=== PATIENT | female | born 1985 | race Caucasian/White ===

== ENCOUNTER 2016-09-03 19:32 | Outpatient (CLI) | payer MEDICAID ==
[~2016-09-03 19:32] MED LIST: ACET325T14 PO; ACID1TAB3 PO; CLIN300C93 PO; CLOB15CR19 TP; DAPS100T PO; OXYC-302 PO; PRED10TA PO
[2016-09-03 20:21] LABS: DAU SCREEN DISCLAIMER
== END 2016-09-03 21:35 | disposition home or self-care (01) ==
LOC: LDOP 19:32
PROVIDERS: ATTEND Obstetrics & Gynecology
DX: O26.892 Other specified pregnancy related conditions, second trimester (principal); R10.30 Lower abdominal pain, unspecified; O10.912 Unspecified pre-existing hypertension complicating pregnancy, second trimester; Z3A.20 20 weeks gestation of pregnancy
CPT/HCPCS: 59025; 80307; 81003; 87086; 99211; G0463

== ENCOUNTER 2016-12-27 12:20 | Outpatient (CLI) | payer MEDICAID ==
[~2016-12-27] VITALS: Ht 162.6 cm; Wt 102.2 kg
[2016-12-27 12:42] VITALS: BP 131/69
== END 2016-12-27 14:00 | disposition home or self-care (01) ==
LOC: LDOP 12:20
PROVIDERS: ATTEND Obstetrics & Gynecology
DX: O26.893 Other specified pregnancy related conditions, third trimester (principal); O10.913 Unspecified pre-existing hypertension complicating pregnancy, third trimester; R10.9 Unspecified abdominal pain; Z3A.37 37 weeks gestation of pregnancy
CPT/HCPCS: 59025; 81001; 87086; 99211; G0463

== ENCOUNTER 2017-01-17 10:51 | Outpatient (CLI) | payer MEDICAID ==
[~2017-01-17] VITALS: Ht 162.6 cm; Wt 104.5 kg
[2017-01-17 11:01] VITALS: BP 131/70
[2017-01-17] MEDS ORDERED: ASPI-515 PO (11:06)
[2017-01-17] MEDS ORDERED: PNV1TAB.5 PO (11:07)
[2017-01-17] MEDS ORDERED: TRIA15OI TP (11:07)
== END 2017-01-17 12:51 | disposition home or self-care (01) ==
LOC: LDOP 10:51
PROVIDERS: ATTEND Obstetrics & Gynecology
DX: O42.92 Full-term premature rupture of membranes, unspecified as to length of time between rupture and onset of labor (principal); O10.913 Unspecified pre-existing hypertension complicating pregnancy, third trimester; O62.9 Abnormality of forces of labor, unspecified; O48.0 Post-term pregnancy; Z3A.40 40 weeks gestation of pregnancy
CPT/HCPCS: 59025; 89060; 99211; G0463; Q0114

== ENCOUNTER 2017-01-18 05:51 | Inpatient (IN) | payer MEDICAID ==
[~2017-01-18] VITALS: Ht 162.6 cm; Wt 104.5 kg
[~2017-01-18 05:51] MED LIST changes: +ASPI-515 PO; +PNV1TAB.5 PO; +TRIA15OI TP
[2017-01-18 05:55] VITALS: BP 186/81
[2017-01-18] MEDS ORDERED: LACTATED RINGERS 1,000 ML IV SCH ×2 (06:01→06:38)
[2017-01-18] MEDS ORDERED: OXYTOCIN 30U/ 0.9% NaCL 500ML 500 ML IV ONE (06:01)
[2017-01-18] MEDS ORDERED: D5%-LACTATED RINGERS 1,000 ML IV SCH (06:01)
[2017-01-18] MEDS ORDERED: LIDOCAINE 1%, 20ML ONE (06:03)
[2017-01-18] MEDS ORDERED: OXYTOCIN 30U/ 0.9% NaCL 500ML 500 ML ONE (06:04)
[2017-01-18] MEDS ORDERED: NEWBORN KIT ONE (06:04)
[2017-01-18] MEDS ORDERED: FENTANYL PF 100 MCG/2ML ONE (06:08)
[2017-01-18] MEDS ORDERED: FENTANYL PF 100 MCG/2ML IV PRN (06:30)
[2017-01-18] MEDS ORDERED: CALCIUM CARBONATE 500 MG TAB.CHEW PO PRN (06:30)
[2017-01-18] MEDS ORDERED: FENTANYL PF 100 MCG/2ML IVPush PRN (06:30)
[2017-01-18] MEDS ORDERED: METOCLOPRAMIDE 5 MG/ML, 2ML IVPush PRN (06:30)
[2017-01-18] MEDS ORDERED: ONDANSETRON 2MG/ML, 2ML IVPush PRN (06:30)
[2017-01-18] MEDS ORDERED: SODIUM CITRATE/CITRIC ACID 30 ML UDC PO PRN (06:30)
[2017-01-18] MEDS ORDERED: TERBUTALINE 1 MG/ML, 1ML IVPush PRN (06:30)
[2017-01-18] MEDS ORDERED: FENTANYL/BUPIV./NS/PF 250 ML EPIDCONT SCH (06:38)
[2017-01-18 06:39] LABS: HEMATOCRIT 34.5 % (34.6-47.8); HEMOGLOBIN 11.4 g/dL (11.7-16.4); WHITE BLOOD COUNT 11.7 x10^3/uL (3.4-10)
[2017-01-18] MEDS ORDERED: FENTANYL/BUPIV./NS/PF 250 ML EPIDCONT ONE (06:41)
[2017-01-18] MEDS ORDERED: BUPIVACAINE/PF 0.25% ONE (06:41)
[2017-01-18 06:52] LABS: BLOOD UREA NITROGEN 12 mg/dL (7-18)
[2017-01-18] MEDS ORDERED: NALOXONE 0.4 MG/ML, 1ML IVPush PRN (07:00)
[2017-01-18] MEDS ORDERED: LACTATED RINGERS 1,000 ML IVBOLUS PRN (07:00)
[2017-01-18] MEDS ORDERED: EPHEDRINE 50 MG/ML, 1ML IVPush PRN (07:00)
[2017-01-18 07:04] LABS: ASPARTATE AMINO TRANSFERASE 23 U/L (15-37)
[2017-01-18] MEDS: OXYTOCIN 30U/ 0.9% NaCL 500ML 500 ML IV SCH ×2 (09:23→18:57)
[2017-01-18] MEDS ORDERED: MISOPROSTOL 200 MCG TABLET PR PRN (09:30)
[2017-01-18 11:15] VITALS: BP 131/67
[2017-01-18] MEDS: IBUPROFEN 600 MG TABLET PO PRN ×2 (12:31→18:52)
[2017-01-18 15:23] VITALS: BP 131/76
[2017-01-18 17:21] LABS: HEMATOCRIT 34.2 % (34.6-47.8); HEMOGLOBIN 11.4 g/dL (11.7-16.4); WHITE BLOOD COUNT 14.8 x10^3/uL (3.4-10)
[2017-01-18] MEDS: DOCUSATE 100 MG CAPSULE PO PRN (18:52)
[2017-01-18 19:25] VITALS: BP 136/75
[2017-01-19 00:15] VITALS: BP 134/73
[2017-01-19] MEDS: IBUPROFEN 600 MG TABLET PO PRN ×4 (01:03→20:09)
[2017-01-19] MEDS: OXYTOCIN 30U/ 0.9% NaCL 500ML 500 ML IV SCH ×2 (05:23→15:23)
[2017-01-19 07:05] VITALS: BP 139/87
[2017-01-19] MEDS: PRENATAL VIT/IRON/FA 1 EACH TABLET PO SCH (09:00)
[2017-01-19] MEDS: DOCUSATE 100 MG CAPSULE PO PRN ×2 (14:13→20:09)
[2017-01-19 19:45] VITALS: BP 139/85
[2017-01-19] MEDS: HYDROcodone/APAP 5/325 TABLET PO PRN (20:09)
[2017-01-20] MEDS: HYDROcodone/APAP 5/325 TABLET PO PRN ×3 (00:57→11:55)
[2017-01-20] MEDS: OXYTOCIN 30U/ 0.9% NaCL 500ML 500 ML IV SCH (01:23)
[2017-01-20] MEDS ORDERED: IBUP-1222 PO (02:37)
[2017-01-20] MEDS: IBUPROFEN 600 MG TABLET PO PRN (05:51)
[2017-01-20 08:10] VITALS: BP 147/89
[2017-01-20] MEDS: PRENATAL VIT/IRON/FA 1 EACH TABLET PO SCH (11:54)
[2017-01-20] MEDS: DOCUSATE 100 MG CAPSULE PO PRN (11:54)
== END 2017-01-20 14:03 | disposition home or self-care (01) | DRG 775 ==
LOC: LDOP 05:51 → LDIP 06:07 → 2NW 11:12
PROVIDERS: ADMIT Obstetrics & Gynecology; ATTEND Obstetrics & Gynecology
PROC: 10E0XZZ Delivery of Products of Conception, External Approach (ICD-10-PCS; principal; 2017-01-18)
PROC: 3E0S3CZ (ICD-10-PCS; 2017-01-18)
PROC: 00HU33Z Insertion of Infusion Device into Spinal Canal, Percutaneous Approach (ICD-10-PCS; 2017-01-18)
DX: O13.4 Gestational [pregnancy-induced] hypertension without significant proteinuria, complicating childbirth (principal); M32.9 Systemic lupus erythematosus, unspecified; O75.89 Other specified complications of labor and delivery; S30.814A Abrasion of vagina and vulva, initial encounter; X58.XXXA Exposure to other specified factors, initial encounter; O12.14 Gestational proteinuria, complicating childbirth; Z88.2 Allergy status to sulfonamides; Z37.0 Single live birth; Z3A.40 40 weeks gestation of pregnancy
CPT/HCPCS: 36415; 80053; 81001; 82248; 82570; 84156; 84550; 85025; 86850; 86900; J3010; J3490; J2590; J7120

== ENCOUNTER 2017-03-09 06:23 | Day surgery (SDC) | payer MEDICAID ==
[~2017-03-09] VITALS: Ht 162.6 cm; Wt 100.8 kg
[~2017-03-09 06:23] MED LIST changes: +CLIN300C8 PO; -CLIN300C93 PO; +IBUP-1222 PO
[2017-03-09 07:47] VITALS: BP 144/87
[2017-03-09 07:47] LABS: HCG UR LOT HCG7030192
[2017-03-09 07:51] LABS: HCG UR OBC PASS
[2017-03-09] MEDS ORDERED: LIDOCAINE 1%, 2ML ONE (07:52)
[2017-03-09] MEDS ORDERED: MIDAZOLAM 1 MG/ML, 2ML ONE (08:07)
[2017-03-09] MEDS ORDERED: FENTANYL PF 100 MCG/2ML ONE ×3 (08:07→10:21)
[2017-03-09] MEDS ORDERED: HYDROmorphone 1 MG/ML, 1ML ONE ×2 (08:08→10:44)
[2017-03-09] MEDS ORDERED: SUCCINYLCHOLINE 20 MG/ML, 10ML ONE (08:09)
[2017-03-09] MEDS ORDERED: ROCURONIUM 10 MG/ML ONE (08:09)
[2017-03-09] MEDS ORDERED: PROPOFOL 10 MG/ML, 20ML ONE (08:09)
[2017-03-09] MEDS ORDERED: LACTATED RINGERS 1,000 ML IV SCH (08:18)
[2017-03-09] MEDS ORDERED: BUPIVACAINE/PF 0.25% ONE (08:21)
[2017-03-09] MEDS ORDERED: PREN1TAB10 PO (08:28)
[2017-03-09] MEDS ORDERED: ASPI-496 PO (08:28)
[2017-03-09] MEDS ORDERED: LIDOCAINE 1%, 2ML SQ PRN (08:30)
[2017-03-09] MEDS ORDERED: DEXAMETHASONE 4 MG/ML, 5ML ONE (09:10)
[2017-03-09] MEDS ORDERED: ONDANSETRON 2MG/ML, 2ML ONE (09:10)
[2017-03-09] MEDS ORDERED: HYDROmorphone 1 MG/ML, 1ML IV PRN (09:30)
[2017-03-09] MEDS ORDERED: MEPERIDINE/PF 25MG/0.5ML IVPush PRN (09:30)
[2017-03-09] MEDS ORDERED: OXYcodone 5 MG/5 ML ORAL.SOL UDC PO PRN (09:30)
[2017-03-09] MEDS ORDERED: HYDROcodone/APAP 7.5-325MG/15ML UDC PO PRN (09:30)
[2017-03-09] MEDS ORDERED: ONDANSETRON 2MG/ML, 2ML IVPush PRN (09:30)
[2017-03-09] MEDS ORDERED: PROMETHAZINE 25 MG/ML, 1ML IV PRN (09:30)
[2017-03-09] MEDS ORDERED: MEPERIDINE/PF 25MG/0.5ML ONE (10:21)
[2017-03-09] MEDS ORDERED: ACETAMINOPHEN 650 MG/20.3 ML UDC ONE (10:21)
[2017-03-09] MEDS ORDERED: OXYcodone 5 MG/5 ML ORAL.SOL UDC ONE (10:21)
[2017-03-09] MEDS: FENTANYL PF 100 MCG/2ML IV PRN ×2 (10:25→10:32)
[2017-03-09] MEDS: ACETAMINOPHEN 325 MG TABLET PO PRN ×2 (10:27→10:28)
== END 2017-03-09 13:40 ==
LOC: OUT 06:23
PROVIDERS: ATTEND Obstetrics & Gynecology
DX: Z30.2 Encounter for sterilization (principal); Z79.82 Long term (current) use of aspirin; Z88.0 Allergy status to penicillin; Z88.8 Allergy status to other drugs, medicaments and biological substances
CPT/HCPCS: 58661; 81025; 88302; J0330; J1100; J1170; J2175; J2250; J2405; J2704; J3010; J3490; J7120

== ENCOUNTER 2018-03-06 11:59 | Emergency (ER) | payer SELFPAY ==
[~2018-03-06] VITALS: Ht 160 cm; Wt 95.8 kg
[~2018-03-06 11:59] MED LIST changes: +ASPI-496 PO; +PREN1TAB10 PO
[2018-03-06] MEDS ORDERED: METHOCARBAMOL 750 MG TABLET ONE (12:26)
[2018-03-06] MEDS ORDERED: HYDROcodone/APAP 5/325 TABLET ONE (12:27)
[2018-03-06] MEDS ORDERED: METHOCARBAMOL 750 MG TABLET PO ONE (12:30)
[2018-03-06] MEDS ORDERED: HYDROcodone/APAP 5/325 TABLET PO ONE (12:30)
[2018-03-06 13:34] VITALS: BP 124/60
== END 2018-03-06 13:36 | disposition home or self-care (01) ==
LOC: ED 13:32
DX: S39.012A Strain of muscle, fascia and tendon of lower back, initial encounter (principal); M85.30 Osteitis condensans, unspecified site; F17.200 Nicotine dependence, unspecified, uncomplicated; M25.551 Pain in right hip; W10.8XXA Fall (on) (from) other stairs and steps, initial encounter; Y93.89 Activity, other specified; Y92.098 Other place in other non-institutional residence as the place of occurrence of the external cause; Y99.8 Other external cause status
CPT/HCPCS: 72110; 99284

== ENCOUNTER 2018-07-29 07:57 | Emergency (ER) | payer SELFPAY ==
[~2018-07-29] VITALS: Ht 160 cm; Wt 92.2 kg
[2018-07-29] MEDS ORDERED: ACETAMINOPHEN 325 MG TABLET PO ONE (09:00)
--- NOTE | 2018-07-29 09:17 | NUR ---
TO ROOM 22
--- NOTE | 2018-07-29 09:29 | NUR ---
32 Y/O FEMALE PRESENTS TO ED WITH C/O "PNA" PER PT, " I THINK I HAVE PNA, BUT I'VE NEVER HAD IT BEFORE. I STARTED FEELING BAD ON TUESDAY. I HAD SOME CP ON TUESDAY. THEN THE NEXT DAY I STARTED COUGHING AND IT ALL GOT WORSE." NO C/O N/V/D, TRAUMA, SYNCOPE. PT PLACED ON CONT PULSE OX,NIBP, SENIOR COMPUTER SPECIALIST.
[2018-07-29 09:31] LABS: BASOPHILS # (AUTO) 0.02 x10^3/uL (0-0.1); BASOPHILS % (AUTO) 0 % (0-1); EOSINOPHILS # (AUTO) 0.05 x10^3/uL (0-0.4); EOSINOPHILS % (AUTO) 1 % (1-7); LYMPHOCYTES # (AUTO) 1.33 x10^3/uL (1-3.4); LYMPHOCYTES % (AUTO) 24 % (22-44); MD NO; MEAN CORPUSCULAR HGB CONC 33.4 g/dL (32.4-35.8); MEAN CORPUSCULAR VOLUME 98.7 fL (80-100); MEAN PLATELET VOLUME 8.8 fL (7.4-10.4); MONOCYTES # (AUTO) 0.65 x10^3/uL (0.2-0.8); MONOCYTES % (AUTO) 12 % (2-9); NEUTROPHILS # (AUTO) 3.49 x10^3/uL (1.8-6.8); NEUTROPHILS % (AUTO) 63 % (42-75); PLATELET COUNT 202 x10^3/uL (130-400); RED BLOOD COUNT 4.23 x10^6/uL (3.82-5.3); RED CELL DISTRIBUTION WIDTH 13.9 % (9.6-15.2)
[2018-07-29 09:39] LABS: RAPID INFLUENZA A Negative (Negative); RAPID INFLUENZA B Negative (Negative)
[2018-07-29 09:42] LABS: ALBUMIN 3.4 g/dL (3.4-5.0); ANION GAP 6 mmol/L (5-15); CALCIUM 8.3 mg/dL (8.5-10.1); CHLORIDE 108 mmol/L (98-107); CREATININE 0.86 mg/dL (0.55-1.02)
[2018-07-29 09:45] LABS: TROPONIN I < 0.015 ng/mL (0.000-0.045)
[2018-07-29] MEDS ORDERED: ACETAMINOPHEN 325 MG TABLET ONE (09:56)
[2018-07-29 10:36] VITALS: BP 125/75
== END 2018-07-29 10:38 | disposition home or self-care (01) ==
LOC: ED 09:48
DX: J06.9 Acute upper respiratory infection, unspecified (principal); R21 Rash and other nonspecific skin eruption
CPT/HCPCS: 36415; 71046; 80048; 82040; 84484; 85025; 87081; 87400; 87880; 93005; 99284

== ENCOUNTER 2019-06-22 09:31 | Emergency (ER) | payer SELFPAY ==
[~2019-06-22] VITALS: Ht 162.6 cm; Wt 89.9 kg
[2019-06-22] MEDS ORDERED: DEXAMETHASONE 4 MG/ML, 1ML IVPush ONE (10:00)
[2019-06-22] MEDS ORDERED: SODIUM CHLORIDE 0.9% 1,000ML IVBOLUS ONE (10:00)
[2019-06-22] MEDS ORDERED: SODIUM CHLORIDE FLUSH 10ML SYR IVF ONE (10:00)
[2019-06-22] MEDS ORDERED: AMPICILLIN/SULBACTAM 3 GM in SODIUM CHLORIDE 0.9% 100 ML IV ONE (10:00)
[2019-06-22] MEDS ORDERED: MORPHINE SULFATE 4 MG/ML, 1ML ONE ×2 (10:04→10:58)
[2019-06-22] MEDS ORDERED: DEXAMETHASONE 4 MG/ML, 5ML ONE (10:04)
[2019-06-22] MEDS: MORPHINE SULFATE 4 MG/ML, 1ML IVPush PRN ×2 (10:10→11:02)
[2019-06-22 10:30] LABS: MEAN CORPUSCULAR VOLUME 102.9 fL (80-100); MEAN PLATELET VOLUME 9.1 fL (7.4-10.4); PLATELET COUNT 288 x10^3/uL (130-400); RED BLOOD COUNT 3.96 x10^6/uL (3.82-5.3)
[2019-06-22 10:40] LABS: ALANINE AMINOTRANSFERASE 15 U/L (12-78); ALBUMIN 3.3 g/dL (3.4-5.0); ANION GAP 8 mmol/L (5-15); CALCIUM 8.1 mg/dL (8.5-10.1); CHLORIDE 107 mmol/L (98-107); CREATININE 0.69 mg/dL (0.55-1.02)
[2019-06-22 10:42] LABS: ALKALINE PHOSPHATASE 70 U/L (45-117); BILIRUBIN,TOTAL 0.6 mg/dL (0.2-1.0); TOTAL PROTEIN 7.7 g/dL (6.4-8.2)
[2019-06-22 11:13] LABS: BASOPHILS # (AUTO) 0.06 x10^3/uL (0-0.1); BASOPHILS % (AUTO) 0 % (0-1); EOSINOPHILS # (AUTO) 0.04 x10^3/uL (0-0.4); EOSINOPHILS % (AUTO) 0 % (1-7); LYMPHOCYTES # (AUTO) 1.42 x10^3/uL (1-3.4); LYMPHOCYTES % (AUTO) 8 % (22-44); MD SCAN; MONOCYTES % (AUTO) 8 % (2-9); NEUTROPHILS # (AUTO) 15.63 x10^3/uL (1.8-6.8); NEUTROPHILS % (AUTO) 84 % (42-75)
[2019-06-22 13:26] VITALS: BP 135/70
== END 2019-06-22 13:29 | disposition home or self-care (01) ==
LOC: ED 11:41
DX: J02.0 Streptococcal pharyngitis (principal); F17.200 Nicotine dependence, unspecified, uncomplicated; Z98.51 Tubal ligation status
CPT/HCPCS: 36415; 80053; 85025; 86308; 96365; 96375; 96376; 99283; J0295; J1100; J2270; J7030

== ENCOUNTER 2019-08-23 13:55 | Emergency (ER) | payer SELFPAY ==
[~2019-08-23] VITALS: Ht 162.6 cm; Wt 92.6 kg
[2019-08-23 14:27] VITALS: BP 136/86
[2019-08-23] MEDS ORDERED: DEXAMETHASONE 4 MG TABLET ONE (15:42)
[2019-08-23] MEDS ORDERED: DEXAMETHASONE 4 MG TABLET PO ONE (16:00)
== END 2019-08-23 16:30 | disposition home or self-care (01) ==
LOC: ED 15:55
DX: J02.8 Acute pharyngitis due to other specified organisms (principal); B97.89 Other viral agents as the cause of diseases classified elsewhere; F17.200 Nicotine dependence, unspecified, uncomplicated
CPT/HCPCS: 87081; 87880; 99283

== ENCOUNTER 2019-09-24 09:06 | Emergency (ER) | payer SELFPAY ==
[~2019-09-24] VITALS: Ht 160 cm; Wt 96.8 kg
--- NOTE | 2019-09-24 09:27 | NUR ---
PT STATES HER JOINTS HURT AND THAT SHE HAS ERYTHEMA/DRY SKIN OUTBREAK ALL OVER BODY. PT STATES SHE HAD IT FOR A MONTH AND BELIEVES IT IS A LUPUS FLAREUP
[2019-09-24 10:59] VITALS: BP 135/79
--- NOTE | 2019-09-24 11:00 | NUR ---
TASK RN:PT RESTING IN [facility]. PT'S AOX4. RESPS EVEN AND UNLABORED. BP/SPO2 MONITORS IN PLACE. CALL LIGHT WITHIN REACH.
--- NOTE | 2019-09-24 11:41 | NUR ---
Patient given discharge instructions and Rx, they have confirmed that they understand the instructions. Patient ambulatory with steady gait.
== END 2019-09-24 11:43 | disposition home or self-care (01) ==
LOC: ED 10:02
DX: L40.9 Psoriasis, unspecified (principal); F17.210 Nicotine dependence, cigarettes, uncomplicated; Z98.51 Tubal ligation status
CPT/HCPCS: 99283; J7512

== ENCOUNTER 2019-10-04 17:38 | Emergency (ER) | payer OTHER, SELFPAY ==
[~2019-10-04] VITALS: Ht 160 cm; Wt 97.0 kg
--- NOTE | 2019-10-04 18:12 | NUR ---
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 PT COMPLAINING OF R SIDED THROAT PAIN, CHILLS, BODY ACHES, AND FEVER THAT BEGAN TODAY. PT DOES HAVE LUPUS AND HAS BEEN ON PREDNISON BUT STOPPED TAKING ON HER OWN 3 DAYS AGO BECAUSE SHE STATED "I THOUGHT IT WAS MAKING MY SYMPTOMS WORSE". PT STATES SHE TOOK "SMALL" AMOUNT OF TYLENOL TODAY WITH A "SIP" OF ROBITUSSIN. UPON EXAMINATION, R SIDE OF THROAT HAS REDNESS AND SWELLING. PT STABLE AT THIS TIME.
[2019-10-04] MEDS ORDERED: ACETAMINOPHEN 500 MG TABLET ONE (18:25)
[2019-10-04] MEDS ORDERED: ACETAMINOPHEN 500 MG TABLET PO ONE (18:30)
--- NOTE | 2019-10-04 18:57 | NUR ---
REPORT GIVEN TO ALESSANDRO PATEL
[2019-10-04 19:18] VITALS: BP 131/66
== END 2019-10-04 20:18 | disposition home or self-care (01) ==
LOC: ED 18:29
DX: J02.0 Streptococcal pharyngitis (principal); Z20.828 Contact with and (suspected) exposure to other viral communicable diseases; R50.9 Fever, unspecified
CPT/HCPCS: 71045; 87081; 87147; 87880; 99284; U0001

== ENCOUNTER 2020-11-27 08:57 | Emergency (ER) | payer MEDICAID, OTHER ==
[~2020-11-27] VITALS: Ht 160 cm; Wt 115.4 kg
[~2020-11-27 08:57] MED LIST changes: -ASPI-515 PO; +ASPI-963 PO; -CLIN300C8 PO; +CLIN300C9 PO; -OXYC-302 PO; +OXYC1TAB14 PO
--- NOTE | 2020-11-27 09:21 | NUR ---
INITINAL CONTACT WITH PT. PT W/ C/O LEFT FOOT SWELLING AND CALF PAIN X4-5 DAYS, AND LEFT HIP PAIN THAT STARTED YESTERDAY. LEFT ANKLE SPRAIN X2 WEEKS AGO, FAMILY HX OF DVTs. JANUARY MCGOWAN TO BEDSIDE FOR EVALUATION. PT TO ROOM WITH STEADY GAIT. POSTIONED TO COMFORT IN BED. ATTACHED TO MONITORS. VSS. MIMS.
[2020-11-27] MEDS ORDERED: KETOROLAC 30 MG/1 ML ONE (09:26)
[2020-11-27] MEDS ORDERED: KETOROLAC 30 MG/1 ML IM ONE (09:30)
--- NOTE | 2020-11-27 10:07 | NUR ---
US AT BEDSIDE. PT RESTING IN BED. SUSAN. PRASANNA.
[2020-11-27 11:36] VITALS: BP 123/89
--- NOTE | 2020-11-27 11:37 | NUR ---
Patient given discharge instructions and they have confirmed that they understand the instructions. Patient ambulatory with steady gait. NAD, all questions answered appropriately, denies additional needs at this time. No personal belongings left in room after discharge.
== END 2020-11-27 11:38 | disposition home or self-care (01) ==
LOC: ED 11:30
DX: M25.572 Pain in left ankle and joints of left foot (principal); X50.0XXA Overexertion from strenuous movement or load, initial encounter; Y93.89 Activity, other specified; Y92.89 Other specified places as the place of occurrence of the external cause; Y99.8 Other external cause status
CPT/HCPCS: 73610; 93971; 96372; 99284; J1885